=== PATIENT | female | born 1975 | race Caucasian/White ===

== ENCOUNTER 2022-07-25 04:08 | Emergency (ER) | payer OTHER ==
[~2022-07-25] VITALS: Ht 175.3 cm; Wt 99.8 kg
[~2022-07-25 04:08] MED LIST: ALBU90OI6 INH; AZIT250 PO; BENZ100A PO; CEPH500 PO; CLIN300 PO; CODACE30 PO; CODGUAEL PO; CRUTCH3 USE; CYCL10 PO; DIAZ5 PO; DOCU100 PO; ESOM20 PO; FAMO40 PO; FLUO20 PO; HYDACE10B PO; HYDACE5 PO; HYDACE5325 PO; IBUP600 PO; IBUP800 PO; MAGIC MOUTHWASH; NAPR500 PO; NAPR500EC PO; OMEP40CA12 PO; OXYACE5T PO; PENVK500 PO; PHENA200 PO; PRED20 PO; PROACE100 PO; Pepcid40 MG PO; RXCYCL10 PO; RXHYDACE PO; RXONDA4ODT MM; SILSUL1TC TOP; SUCR1 PO; SULTRIDS PO; SUMA25 PO; TRAM50 PO; Veetids 500500 MG PO; Zithromax250 MG PO; Zofran Odt4 MG PO
[2022-07-25 05:24] LABS: Influenza B, PCR NEGATIVE (NEGATIVE); Resp Syncytial Virus, PCR NEGATIVE (NEGATIVE); SARS-Cov-2 (COVID-19) PCR, MMC NEGATIVE (NEGATIVE)
[2022-07-25 05:35] LABS: Influenza A, PCR POSITIVE (NEGATIVE)
[2022-07-25 06:50] LABS: BASOPHILS ABSOLUTE AUTO 0.02 K/mm3 (0.00-0.23); BASOPHILS PERCENT AUTO 0 % (0-2); EOSINOPHILS ABSOLUTE AUTO 0.01 K/mm3 (0.00-0.68); EOSINOPHILS PERCENT AUTO 0 % (0-6); Hematocrit 34.5 % (33.0-51.0); Hemoglobin 10.7 g/dL (11.5-16.0); IMMATURE GRAN ABSOLUTE AUTO 0.03 K/mm3 (0.00-0.10); IMMATURE GRAN PERCENT AUTO 0 % (0-1); LYMPHOCYTES ABSOLUTE AUTO 0.69 K/mm3 (0.84-5.20); LYMPHOCYTES PERCENT AUTO 8 % (21-46); MONOCYTES ABSOLUTE AUTO 0.86 K/mm3 (0.16-1.47); MONOCYTES PERCENT AUTO 10 % (4-13); Mean Corpuscular HGB 24.4 pg (26.0-34.0); Mean Corpuscular Volume 79 fL (80-100); Mean Platelet Volume 11.3 fL (9.1-12.4); NEUTROPHILS ABSOLUTE AUTO 7.15 K/mm3 (1.96-9.15); NEUTROPHILS PERCENT AUTO 82 % (41-73); Platelet Count 319 K/mm3 (150-400); RDW Coefficient Variation 16.7 % (11.7-14.2); RDW Standard Deviation 47.6 fL (35.1-46.3); Red Blood Cell Count 4.39 M/mm3 (3.80-5.20); White Blood Cell Count 8.76 K/mm3 (4.00-11.30)
[2022-07-25 07:33] LABS: Albumin, Blood 3.2 g/dL (3.4-5.0); Albumin/Globulin Ratio 0.9 (0.8-1.8); Bilirubin, Total 0.2 mg/dL (0.1-1.0); Bun/Creatinine Ratio 11.1 (12.0-20.0); Creatinine, Blood 0.72 mg/dL (0.40-1.00); Globulin, Blood 3.7 g/dL (2.2-4.0); Potassium, Blood 3.4 mmol/L (3.5-5.5); Total Protein, Blood 6.9 g/dL (6.4-8.2)
[2022-07-25] MEDS ORDERED: PROM25 PO (07:55)
== END 2022-07-25 08:13 | disposition home or self-care (01) ==
LOC: ER 04:08
PROVIDERS: Emergency Medicine; Student in an Organized Health Care Education/Training Program
DX: J10.1 Influenza due to other identified influenza virus with other respiratory manifestations (principal); Z20.822 Contact with and (suspected) exposure to COVID-19
CPT/HCPCS: 0241U; 36415; 80053; 85025; J1885; J2550; J7030

== ENCOUNTER 2023-09-23 10:04 | Day surgery (SDC) | payer OTHER ==
[~2023-09-23] VITALS: Ht 170.2 cm; Wt 96.2 kg
[2023-09-23] VITALS (16 sets, daily range): BP systolic 135–200; BP diastolic 76–104
[~2023-09-23 10:04] MED LIST changes: +FentaNYL Citrate 50 MCG/ML 2 ML Injection ONE; +LOSA50 PO; +PROM25 PO; +Rocuronium Bromide 10 MG/ML 5ML Injection IV ONE; +propofoL 20 ML IV ONE
[2023-09-23] MEDS ORDERED: CeFAZolin Sodium 2,000 MG in NS 50 ML IV SCH ×2 (10:10→19:15)
[2023-09-23] MEDS ORDERED: Lactated Ringer's 1,000 ML IV SCH ×2 (10:10→16:35)
[2023-09-23] MEDS ORDERED: FentaNYL Citrate 50 MCG/ML 2 ML Injection IV PRN ×2 (10:45)
[2023-09-23] MEDS ORDERED: Midazolam HCl 1MG / ML 2ML Vial IV ONE (10:45)
[2023-09-23] MEDS ORDERED: HYDROmorphone HCl/Pf 1MG SYR IV PRN ×2 (10:45→16:50)
[2023-09-23] MEDS ORDERED: Metoclopramide HCl 5MG / ML 2ML Vial IV PRN (10:45)
[2023-09-23] MEDS ORDERED: Lidocaine HCl 1% 5 ML SYR INJ ONE (10:45)
[2023-09-23] MEDS ORDERED: Ondansetron HCl 2 MG / ML 2ML Vial IV PRN ×2 (10:50→16:35)
--- NOTE | 2023-09-23 11:52 | NUR ---
REPORT FROM ALEA GARCIA RN. PT AXOX4, ABLE TO REPOSITION SELF IN BED, SITTING UP VISITING .
[2023-09-23] MEDS ORDERED: Bupivacaine 0.5% HCl 5 MG/ML 30MLVIAL ONE (12:42)
[2023-09-23] MEDS ORDERED: Dexamethasone Sod Phos 10 MG/ML 1ML VIAL ONE (13:30)
[2023-09-23] MEDS ORDERED: Ondansetron HCl 2 MG / ML 2ML Vial ONE (13:30)
[2023-09-23] MEDS ORDERED: FentaNYL Citrate 50 MCG/ML 2 ML Injection ONE ×2 (13:36→14:01)
[2023-09-23] MEDS ORDERED: Labetalol HCL 5 MG/ML 4ML Injection (Single Dose) ONE ×2 (13:37→16:38)
[2023-09-23] MEDS ORDERED: Rocuronium Bromide 10 MG/ML 5ML Injection IV ONE ×2 (13:43→14:36)
[2023-09-23] MEDS ORDERED: propofoL 20 ML IV ONE (14:10)
[2023-09-23] MEDS ORDERED: HydrALAZINE HCl 20 MG / ML 1ML Vial ONE (14:26)
[2023-09-23] MEDS ORDERED: Sugammadex Sodium 200 MG/2ML SDV (100 MG/ML) ONE (14:56)
[2023-09-23] MEDS ORDERED: Ondansetron 4 MG TAB PO PRN (16:35)
[2023-09-23] MEDS ORDERED: Naloxone HCl 0.4MG / ML 1ML Vial IV PRN (16:35)
[2023-09-23] MEDS ORDERED: Ibuprofen 400 MG Tab PO PRN (16:40)
[2023-09-23] MEDS ORDERED: FLU VACC QS2023-24(6MOS UP)/PF 60 MCG/0.5 ML SYRINGE IM SCH (16:40)
[2023-09-23] MEDS ORDERED: Promethazine HCl 25 MG Tab PO PRN (16:40)
[2023-09-23] MEDS ORDERED: LORazepam 1 MG Tab PO PRN (16:40)
[2023-09-23] MEDS ORDERED: OxyCODONE 5 mg/Acetamin 325 mg TABLET PO PRN (16:40)
[2023-09-23] MEDS ORDERED: Simethicone 80 MG Chew PO PRN (16:40)
[2023-09-23] MEDS ORDERED: Promethazine HCl 12.5 MG Supp PR PRN (16:45)
[2023-09-23] MEDS ORDERED: HYDROmorphone HCl/Pf 1MG SYR ONE ×2 (16:55→17:18)
[2023-09-23] MEDS ORDERED: Losartan Potassium 50 MG Tab PO SCH (18:00)
[2023-09-23] MEDS ORDERED: Ketorolac Tromethamine 30mg Vial IV SCH (18:00)
[2023-09-24 03:44] VITALS: BP 159/82
--- NOTE | 2023-09-24 06:45 | NUR ---
SHIFT SUMMARY POD 1 ROBOTIC LAP HYSTR. LAP SITE x4 C/D/I. PT TOLERATING MINIMAL ORALS AT THIS TIME. PT HAS 2 LARGE EPISODES OF EMESIS THIS SHIFT. PT GIVEN ANTI-EMETICS PER EMAR, PT REPORTS NAUSEA LESSENS AFTER ADMINISTRATION. PT REPORTS PAIN TOLERABLE, MEDICATED PER EMAR & ABD BINDER IN PLACE, NO NAUSEA THIS AM. AMBULATING c SBA. ALEJO D/C'd, AWAING FIRST VOID. NO BM THIS SHIFT. ANTICIPATED DISCHARGE LATER TODAY. CALL LIGHT WITHIN REACH, BED IN LOWEST POSITION, WILL REPORT TO DAY RN.
[2023-09-24 07:03] LABS: BASOPHILS ABSOLUTE AUTO 0.02 K/mm3 (0.00-0.23); BASOPHILS PERCENT AUTO 0 % (0-2); EOSINOPHILS ABSOLUTE AUTO 0.01 K/mm3 (0.00-0.68); EOSINOPHILS PERCENT AUTO 0 % (0-6); Hematocrit 38.3 % (33.0-51.0); Hemoglobin 12.6 g/dL (11.5-16.0); IMMATURE GRAN ABSOLUTE AUTO 0.08 K/mm3 (0.00-0.10); IMMATURE GRAN PERCENT AUTO 0 % (0-1); LYMPHOCYTES ABSOLUTE AUTO 1.61 K/mm3 (0.84-5.20); LYMPHOCYTES PERCENT AUTO 9 % (21-46); MONOCYTES ABSOLUTE AUTO 0.78 K/mm3 (0.16-1.47); MONOCYTES PERCENT AUTO 4 % (4-13); Mean Corpuscular HGB 28.5 pg (26.0-34.0); Mean Corpuscular HGB Conc 32.9 g/dL (31.5-36.5); Mean Corpuscular Volume 87 fL (80-100); Mean Platelet Volume 10.2 fL (9.1-12.4); NEUTROPHILS ABSOLUTE AUTO 15.49 K/mm3 (1.96-9.15); NEUTROPHILS PERCENT AUTO 86 % (41-73); Platelet Count 308 K/mm3 (150-400); RDW Coefficient Variation 13.4 % (11.7-14.2); RDW Standard Deviation 42.5 fL (35.1-46.3); Red Blood Cell Count 4.42 M/mm3 (3.80-5.20); White Blood Cell Count 17.99 K/mm3 (4.00-11.30)
[2023-09-24 07:40] VITALS: BP 163/88
[2023-09-24] MEDS ORDERED: IBUP800 PO (11:19)
[2023-09-24] MEDS ORDERED: Percocet 5-3251 EACH PO (11:19)
[2023-09-24] MEDS ORDERED: SIME80CH PO (11:20)
[2023-09-24] MEDS ORDERED: PROM25 PO (11:20)
--- NOTE | 2023-09-24 11:29 | NUR ---
DISCHARGE NOTE: PATIENT WAS EDUCATED ON DISCHARGE INSTRUCTIONS. SHE VERBALIZED UNDERSTANDING OF INSTRUCTIONS AND HAD NO FURTHER QUESTIONS AT THIS TIME. IV'S WERE TAKEN OUT AND WNL. PAIN IS MANAGED WITH ORAL PAIN MEDS. HER ABD LAP SITES X4 WITH WOUND GLUE THAT ARE C/D/I. DENIES NAUSEA OR VOMITING THROUGHOUT SHIFT. SHE IS TOLERATING PO INTAKE AND IS VOIDING. SHE HAS SCANT AMOUNT OF BLOOD ON HER SALLIE PAD. PATIENT IS DRESSED AND HAS PERSONAL ITEMS IN THE ROOM GATHERED. SHE WAS WHEELCHAIRED OUT TO HER HUSBANDS CAR TO BE TAKEN HOME.
== END 2023-09-24 11:33 | disposition home or self-care (01) ==
LOC: ORSCMMR 10:04 → ORD 11:45 → ORSCMMR 13:15 → ORD 13:45 → SURS 17:48 → ORSCMMR 09-24 11:33
PROVIDERS: Obstetrics & Gynecology
PROC: 0UT9FZZ Resection of Uterus, Via Natural or Artificial Opening With Percutaneous Endoscopic Assistance (ICD-10-PCS; principal; 2023-09-23 13:15)
PROC: 0UT7FZZ Resection of Bilateral Fallopian Tubes, Via Natural or Artificial Opening With Percutaneous Endoscopic Assistance (ICD-10-PCS; principal; 2023-09-23 13:15)
DX: N92.1 Excessive and frequent menstruation with irregular cycle (principal); N85.2 Hypertrophy of uterus; N94.6 Dysmenorrhea, unspecified; N85.00 Endometrial hyperplasia, unspecified; D50.0 Iron deficiency anemia secondary to blood loss (chronic); D25.9 Leiomyoma of uterus, unspecified; Q50.5 Embryonic cyst of broad ligament; N73.6 Female pelvic peritoneal adhesions (postinfective); K21.9 Gastro-esophageal reflux disease without esophagitis; Z79.899 Other long term (current) drug therapy; Z68.33 Body mass index [BMI] 33.0-33.9, adult
CPT/HCPCS: 36415; 85025; 86850; 86900; 86901; 88307; 94762; A9270; J0360; J0690; J1100; J1170; J1885; J2250; J2405; J2704; J3010; J7120

== ENCOUNTER 2025-03-31 13:30 | Emergency (ER) | payer OTHER ==
[~2025-03-31] VITALS: Ht 170.2 cm; Wt 95.7 kg
[~2025-03-31 13:30] MED LIST changes: -FentaNYL Citrate 50 MCG/ML 2 ML Injection ONE; +Percocet 5-3251 EACH PO; -Rocuronium Bromide 10 MG/ML 5ML Injection IV ONE; +SIME80CH PO; -propofoL 20 ML IV ONE
[2025-03-31 13:48] LABS: BASOPHILS ABSOLUTE AUTO 0.04 K/mm3 (0.00-0.23); BASOPHILS PERCENT AUTO 1 % (0-2); EOSINOPHILS ABSOLUTE AUTO 0.10 K/mm3 (0.00-0.68); EOSINOPHILS PERCENT AUTO 1 % (0-6); Hematocrit 39.8 % (33.0-51.0); Hemoglobin 13.3 g/dL (11.5-16.0); IMMATURE GRAN ABSOLUTE AUTO 0.04 K/mm3 (0.00-0.10); IMMATURE GRAN PERCENT AUTO 1 % (0-1); LYMPHOCYTES ABSOLUTE AUTO 2.31 K/mm3 (0.84-5.20); LYMPHOCYTES PERCENT AUTO 27 % (21-46); MONOCYTES ABSOLUTE AUTO 0.54 K/mm3 (0.16-1.47); MONOCYTES PERCENT AUTO 6 % (4-13); Mean Corpuscular HGB Conc 33.4 g/dL (31.5-36.5); Mean Corpuscular Volume 87 fL (80-100); NEUTROPHILS ABSOLUTE AUTO 5.45 K/mm3 (1.96-9.15); NEUTROPHILS PERCENT AUTO 64 % (41-73); NRBC ABSOLUTE 0.00 K/mm3 (0.00-0.02); NRBC Auto 0.0 /100 WBC (0.0-0.2); Platelet Count 252 K/mm3 (150-400); RDW Coefficient Variation 13.5 % (11.7-14.2); RDW Standard Deviation 42.2 fL (35.1-46.3)
[2025-03-31 14:16] LABS: Alanine Aminotransfer (ALT/SGP 57.0 U/L (12-78); Albumin, Blood 3.6 g/dL (3.4-5.0); Albumin/Globulin Ratio 1.0 (0.8-1.8); Anion Gap 7.0 mmol/L (3-11); Aspartate Aminotrans (AST/SGOT 24.0 U/L (12-37); Bilirubin, Total 0.7 mg/dL (0.1-1.0); Blood Urea Nitrogen 14.0 mg/dL (8-24); CO2, Blood 23.0 mmol/L (21-32); Calcium, Blood 8.8 mg/dL (8.5-10.1); Chloride, Blood 110.0 mmol/L (98-108); Creatinine, Blood 0.79 mg/dL (0.40-1.00); Globulin, Blood 3.6 g/dL (2.2-4.0); Glucose, Blood 100.0 mg/dL (70-99); Potassium, Blood 3.7 mmol/L (3.5-5.5); Sodium, Blood 136.0 mmol/L (136-145); Total Protein, Blood 7.2 g/dL (6.4-8.2)
[2025-03-31] MEDS ORDERED: Dexamethasone Sodium Phosphate 4 MG/ML 1ML Vial IV ONE (14:25)
[2025-03-31] MEDS ORDERED: Ketorolac Tromethamine 15mg Vial IV ONE (14:25)
[2025-03-31] MEDS ORDERED: DiphenhydrAMINE HCl 50 MG/ML 1ML Vial IV ONE (14:25)
[2025-03-31] MEDS ORDERED: Prochlorperazine Edisylate 10 mg Vial IV ONE (14:25)
[2025-03-31] MEDS ORDERED: NS 1,000 ML IV SCH (14:30)
[2025-03-31 14:45] VITALS: BP 200/100
== END 2025-03-31 15:38 | disposition home or self-care (01) ==
LOC: ER 13:30
PROVIDERS: Emergency Medicine
DX: G43.909 Migraine, unspecified, not intractable, without status migrainosus (principal); R42 Dizziness and giddiness; Z79.899 Other long term (current) drug therapy
CPT/HCPCS: 80053; 84484; 85025; J0780; J1100; J1200; J1885; J7030